=== PATIENT | male | born 1965 | race Two or more races ===

== ENCOUNTER 2016-11-17 20:11 | Emergency (ER) | payer MEDICAID ==
[~2016-11-17] VITALS: Ht 170.2 cm; Wt 71.7 kg
[2016-11-17 20:14] VITALS: BP 107/90
[2016-11-17 21:22] LABS: BASOPHILS % (AUTO) 0.7 % (0.0-2.0); LYMPHOCYTES % (AUTO) 9.9 % (20.0-45.0); MEAN CORPUSCULAR HEMOGLOBIN 30.8 PG (27.0-31.0); MEAN CORPUSCULAR HGB CONC 33.2 G/DL (32.0-36.0); MEAN CORPUSCULAR VOLUME 93 FL (80-99); MEAN PLATELET VOLUME 9.5 FL (6.5-10.1); MONOCYTES % (AUTO) 7.9 % (1.0-10.0); NEUTROPHILS % (AUTO) 80.5 % (45.0-75.0); PLATELET COUNT 173 K/UL (150-450); RED BLOOD COUNT 4.87 M/UL (4.70-6.10); WHITE BLOOD COUNT 10.2 K/UL (4.8-10.8)
[2016-11-17 21:35] LABS: INR 1.1 (0.9-1.1); PROTHROMBIN TIME 10.8 SEC (9.30-11.50)
[2016-11-17 21:37] LABS: TROPONIN I < 0.30 ng/mL (<=0.30)
[2016-11-17 21:38] LABS: ALBUMIN/GLOBULIN RATIO 1.4 (1.0-2.7); CALCIUM 8.8 mg/dL (8.6-10.2); CREATININE 1.3 mg/dL (0.7-1.2); GLOMERULAR FILTRATION RATE 58.4 mL/min (>60); POTASSIUM 3.9 mEQ/L (3.4-4.9); TOTAL PROTEIN 6.7 g/dL (6.6-8.7)
[2016-11-17 21:49] LABS: CKMB 3.4 ng/mL (< 6.7)
[2016-11-17 23:10] VITALS: BP 137/91
[2016-11-18 00:24] VITALS: BP 133/97
[2016-11-18 00:30] VITALS: BP 133/97
--- NOTE | 2016-11-18 09:12 | Diagnostic Imaging Report ---
Indication: SOB Technique: One view of the chest Comparison: none Findings: Lungs and pleural spaces are clear. Heart size is normal. Impression: No acute process
--- NOTE | 2016-11-18 09:50 | Diagnostic Imaging Report ---
ndication: Chest pain Technique: IV administration nonionic contrast. Spiral acquisitions obtained from the lung bases to the lung apices. Multiplanar and 3-D reconstructions were generated. Total dose length product 870 mGycm. CTDIvol(s) 12, 12, 24 mGy Comparison: None Findings: The pulmonary arteries are well opacified. No intraluminal filling defects or other findings to suggest acute pulmonary embolus demonstrated. No evidence of thoracic aortic aneurysm or dissection. Normal caliber pulmonary arteries. Normal size heart, normal sized right ventricle. The lungs are clear except for minimal left basilar and posterior dependent atelectatic changes. No infiltrates, effusions, masses, or nodules. The heart size is normal. No pericardial effusion. The thyroid is unremarkable. Dense material is seen within the gastric lumen, significance uncertain. The upper abdominal anatomy is otherwise unremarkable. Impression: Negative for acute pulmonary embolus or other acute thoracic pathology This agrees with the preliminary interpretation provided overnight by [facility]. The CT scanner at [facility] is accredited by the [employer] and the scans are performed using protocols designed to limit radiation exposure to as low as reasonably achievable to attain images of sufficient resolution adequate for diagnostic evaluation.
--- NOTE | 2016-11-18 15:02 | Cardiology Report ---
APPROVED REPORT EKG Measurement Heart [id number] Sinus tachycardia Septal infarct, age undetermined Abnormal ECG
--- NOTE | 2016-11-20 08:20 | Emergency Room Report ---
History of Present Illness General Chief Complaint: Syncope Source: Patient Present Illness HPI Patient is a 51-year-old male who presented after having syncopal episode the patient had syncope after exercising at the gym. Patient had been recently traveling from [place]. He had noticed feeling lightheaded before passing out. Patient had no prior syncopal episodes. The patient reported having done a leg workout immediately preceding. He had not been vomiting or having diarrhea. Allergies: Coded Allergies: No Known Allergies (Unverified , 11/17/16) Patient History Past Medical History: see triage record Reviewed Nursing Documentation: PMH: Agreed, PSxH: Agreed Nursing Documentation-PM Past Medical History: No Stated History Review of Systems All Other Systems: negative except mentioned in HPI Physical Exam Vital Signs Date Time Temp Pulse Resp B/P Pulse Ox O2 Delivery O2 Flow Rate FiO2 11/17/16 20:07 98.2 108 16 119/76 97 Room Air Sp02 EP Interpretation: reviewed, normal General Appearance: normal inspection, well appearing, no apparent distress, alert, GCS 15 Head: atraumatic ENT: normal ENT inspection, hearing grossly normal, normal voice Neck: normal inspection, full range of motion, supple, no bony tend Respiratory: normal inspection, lungs clear, normal breath sounds, no respiratory distress, no retraction, no wheezing Cardiovascular #1: regular rate, rhythm, no edema Gastrointestinal: normal inspection, normal bowel sounds, non tender, soft, no guarding, no hernia Genitourinary: no CVA tenderness Musculoskeletal: normal inspection, back normal, normal range of motion Neurologic: normal inspection, alert, oriented x3, responsive, doorkeeper III-XII nml as tested, speech normal Psychiatric: normal inspection, judgement/insight normal, mood/affect normal Skin: normal inspection, normal color, no rash Medical Decision Making Diagnostic Impression: Primary Impression: Syncope Additional Impression: Head injury ER Course Patient presented for syncope.lDifferential diagnosis included but not limited to syncope versus seizure. Potential causes for syncope included arrhythmia, dehydration, acute coronary syndrome, severe anemia, pulmonary embolus. Because of complexity of patient's case laboratory testing and imaging studies were ordered. EKG interpreted by me showed normal sinus rhythm with a rate of [address] were [address] acute [address] or T wave changes noted. The patient noted have some septal Q waves. Laboratory testing showed elevated d-dimer. The patient was noted not to be anemic. With the patient's history of prolonged recent travel and elevated d-dimer a CT imaging of the chest was performed. A CT chest read by radiology showed no evidence of aortic dissection or pulmonary embolism. The patient started on IV fluids. Patient said he felt better. Patient was advised followup with his primary care physician prior to resuming exercise. CT the head read by radiologist showed no acute hemorrhage or stroke. The patient is advised to follow up with primary care doctor in 1-2 days. Patient is advised to return if any worsening condition or if any changes in status that are concerning. EKG Diagnostic Results Rate: tachycardiac Rhythm: NSR ST Segments: no acute changes Rhythm Strip Diag. Results EP Interpretation: yes Rhythm: NSR, no PVC's, no ectopy Chest X-Ray Diagnostic Results EP Interpretation: Yes Findings: no consolidation, no effusion, no pneumothorax, no acute cardiopulmonary disease Number of Views: 1 Last Vital Signs Date Time Temp Pulse Resp B/P Pulse Ox O2 Delivery O2 Flow Rate FiO2 11/18/16 00:30 98.2 114 18 133/97 99 Room Air Status: improved Disposition: HOME, SELF-CARE Condition: Stable Patient Instructions: Head Injury, Adult, Syncope Preet Calvo Nov 20, 2016 08:20
--- NOTE | 2016-11-22 10:32 | Diagnostic Imaging Report ---
Indications: Syncope Technique: Spiral acquisitions obtained through the brain. Angled axial and coronal 5 x 5 mm slices were reconstructed. Total dose length product 1474 mGycm. CTDI vol(s) 70 mGy Comparison: None Findings: There is mild cerebral cortical volume loss, somewhat out of proportion to patient's age. Normal size ventricles. No acute hemorrhage or edema. No mass effect or midline shift. Normal goss-white differentiation. Visualized orbits and sinuses are unremarkable. The calvarium is intact. Impression: Mild cervical cortical volume loss, out of proportion to patient's age Negative for acute intracranial bleed or mass effect This agrees with the preliminary interpretation provided overnight by Dr. Stout The CT scanner at [facility] is accredited by the [employer] and the scans are performed using protocols designed to limit radiation exposure to as low as reasonably achievable to attain images of sufficient resolution adequate for diagnostic evaluation.
== END 2016-11-18 00:30 | disposition home or self-care (01) ==
LOC: EDBD 20:11 → EMR 20:40
DX: R55 Syncope and collapse (principal); S09.8XXA Other specified injuries of head, initial encounter; W19.XXXA Unspecified fall, initial encounter; Y92.39 Other specified sports and athletic area as the place of occurrence of the external cause
CPT/HCPCS: 36415; 70450; 71010; 71275; 80053; 80300; 82550; 82553; 83880; 84484; 85025; 85379; 85610; 85730; 93005; 96374; 99284; Q9967